=== PATIENT | female | born 1980 | race Caucasian/White ===

== ENCOUNTER 2016-07-15 13:50 | Emergency (ER) | payer MEDICAID ==
[~2016-07-15] VITALS: Ht 157.5 cm; Wt 66.3 kg
[2016-07-15 14:05] VITALS: BP 117/73
== END 2016-07-15 16:25 | disposition home or self-care (01) ==
LOC: ED 15:44
DX: S63.522A Sprain of radiocarpal joint of left wrist, initial encounter (principal); S43.402A Unspecified sprain of left shoulder joint, initial encounter; X58.XXXA Exposure to other specified factors, initial encounter; Y93.89 Activity, other specified; Y92.89 Other specified places as the place of occurrence of the external cause; Y99.8 Other external cause status
CPT/HCPCS: 99284

== ENCOUNTER 2016-10-17 09:56 | Emergency (ER) | payer MEDICAID ==
[~2016-10-17] VITALS: Ht 157.5 cm; Wt 67.5 kg
[2016-10-17] MEDS ORDERED: FLUT9.9S NAS (10:33)
[2016-10-17] MEDS ORDERED: SODIUM CHLORIDE 0.9% 1,000ML IVBOLUS ONE (11:00)
[2016-10-17] MEDS ORDERED: PROCHLORPERAZINE 5 MG/ML, 2ML IVPush ONE (11:00)
[2016-10-17] MEDS ORDERED: DIPHENHYDRAMINE 50 MG/ML, 1ML IVPush ONE (11:00)
[2016-10-17 11:47] VITALS: BP 118/74
== END 2016-10-17 11:49 | disposition home or self-care (01) ==
LOC: ED 11:43
DX: S39.012A Strain of muscle, fascia and tendon of lower back, initial encounter (principal); G43.901 Migraine, unspecified, not intractable, with status migrainosus; X58.XXXA Exposure to other specified factors, initial encounter; Y93.89 Activity, other specified; Y92.89 Other specified places as the place of occurrence of the external cause; Y99.8 Other external cause status
CPT/HCPCS: 70450; 96361; 96374; 96375; 99284; J0780; J1200; J7030